=== PATIENT | female | born 1970 | race American Indian/Alaskan Native ===

== ENCOUNTER 2019-08-31 08:10 | Inpatient (IN) | payer OTHER ==
--- NOTE | 2019-08-31 08:26 | Emergency Department Report ---
HPI - General Chief Complaint: Neuro Symptoms/Deficit Time Seen by Provider: 08/31/19 08:25 - HPI HPI: Room 19 ED Past Medical Hx - Past Medical History Previous Medical History?: Yes Hx Hypertension: Yes ED Review of Systems ROS: Stated complaint: RT SIDE WEAKNESS Other details as noted in HPI Critical care attestation.: If time is entered above; I have spent that time in minutes in the direct care of this critically ill patient, excluding procedure time. ED Disposition Condition: Stable
--- NOTE | 2019-08-31 08:53 | Emergency Department Report ---
ED Neuro Deficit HPI - General Chief Complaint: Neuro Symptoms/Deficit Stated Complaint: RT SIDE WEAKNESS Time Seen by Provider: 08/31/19 08:25 Source: patient Mode of arrival: Wheelchair Limitations: No Limitations - History of Present Illness Initial Comments: [facility] Date of Service: 08/31/2019 08:22:27 Impression: Small Vessel Infarct left hemispheric, subcortical-thalamic Comments/Sign-Out: The patient comes in with right sided weakness; seems related more to her sensory loss. No previous stroke and out of therapeutic window for tpa. Will need admission for further stroke workup. Metrics: Last Known Well: 08/30/2019 11:30:00 [facility] Notification Time: 08/31/2019 08:22:27 Arrival Time: 08/31/2019 08:22:27 Stamp Time: 08/31/2019 08:22:27 Time First Login Attempt: 08/31/2019 08:24:00 Video Start Time: 08/31/2019 08:24:00 Symptoms: right sided weakness and numbness NIHSS Start Assessment Time: 08/31/2019 08:29:24 Patient is not a candidate for tPA. Patient was not deemed candidate for tPA thrombolytics because of Last Well Known Above 4.5 Hours. Video End Time: 08/31/2019 08:46:03 CT head showed no acute hemorrhage or acute core infarct. CT head was reviewed and results were: small hypodensity on left BG Clinical Presentation is not Suggestive of Large Vessel Occlusive Disease, Patient is not a Candidate for Thrombectomy ED Physician notified of diagnostic impression and management plan on 08/31/2019 08:46:09 Our recommendations are outlined below. Recommendations: Activate Stroke Protocol Admission/Order Set Stroke/Telemetry Floor Neuro Checks Bedside Swallow Eval DVT Prophylaxis IV Fluids, Normal Saline Head of Bed Below 30 Degrees Euglycemia and Avoid Hyperthermia (PRN Acetaminophen) Initiate Aspirin 325 MG Daily Recommended Scan: MRI Head MRA Head and Neck Without Contrast When Available - Stroke Protocol Echocardiogram - Transthoracic Echocardiogram Lipid Panel to Be Obtained, if Not Done in the Last 30 Days Therapies: Physical Therapy, Occupational Therapy, Speech Therapy Assessment When Applicable Dysphaghia Screen: Swallow Evaluation, Bedside NPO Until Swallow Evaluation Disposition: Follow up with Teleneurology Follow up Sign Out: Discussed with Emergency Department Provider History of Present Illness: Patient is a 48 year old Female. Patient was brought by private transportation with symptoms of right sided weakness and numbness The patient comes to the hospital for right sided weakness. The last time she felt normal was yesterday around [id number]. She describes that she was getting food, tried to get out of the car to help with the parking spot and then fell down. She felt off throughout the whole day after this. He right side of the face was tingling. Tday she woke up at 3am to go to the bathroom and she was unable to walk well to the bathroom and could not get off the toilet. no h/o afib, stroke, does not take any anticoagulants. CT head showed no acute hemorrhage or acute core infarct. CT head was reviewed. Examination: BP(158/104), 1A: Level of Consciousness - Alert; keenly responsive + 0 1B: Ask Month and Age - Both Questions Right + 0 1C: Blink Eyes & Squeeze Hands - Performs Both Tasks + 0 2: Test Horizontal Extraocular Movements - Normal + 0 3: Test Visual Nascimento - No Visual Loss + 0 4: Test Facial Palsy (Use Grimace if Obtunded) - Normal symmetry + 0 5A: Test Left Arm Motor Drift - No Drift for 10 Seconds + 0 5B: Test Right Arm Motor Drift - Drift, but doesn't hit bed + 1 6A: Test Left Leg Motor Drift - No Drift for 5 Seconds + 0 6B: Test Right Leg Motor Drift - Drift, but doesn't hit bed + 1 7: Test Limb Ataxia (FNF/Heel-[place]) - No Ataxia + 0 8: Test Sensation - Mild-Moderate Loss: Less Sharp/More Dull + 1 9: Test Language/Aphasia - Normal; No aphasia + 0 10: Test Dysarthria - Normal + 0 11: Test Extinction/Inattention - No abnormality + 0 NIHSS Score: 3 Patient was informed the Neurology Consult would happen via TeleHealth consult by way of interactive audio and video telecommunications and consented to receiving care in this manner. Due to the immediate potential for life-threatening deterioration due to underlying acute neurologic illness, I spent 35 minutes providing critical care. This time includes time for face to face visit via telemedicine, review of medical records, imaging studies and discussion of findings with providers, the patient and/or family. Dr Irwin Tejeda [facility] Case [id number] - Related Data Allergies/Adverse Reactions: Allergies Allergy/AdvReac Type Severity Reaction Status Date / Time No Known Allergies Allergy Unverified 08/31/19 08:16 ED Review of Systems ROS: Stated complaint: RT SIDE WEAKNESS Other details as noted in HPI ED Past Medical Hx - Past Medical History Previous Medical History?: Yes Hx Hypertension: Yes - Social History Smoking Status: Current Every Day Smoker Substance Use Type: None ED Neuro Physical Exam - General Limitations: No Limitations Suspected Stroke: Yes - Neurological Exam Neurological exam: Present: alert - NIHSS Assessment Interval: Baseline 1a. Level of Consciousness: alert/keenly responsive 1b. LOC Questions: answers both correctly 1c. LOC Commands: performs tasks correctly 2. Best Gaze: normal 3. Visual: no visual loss 4. Facial Palsy: normal symmetrical movement 5b. Motor Arm Right: drift 5a. Motor Arm Left: no drift 6a. Motor Leg Left: no drift 6b. Motor Leg Right: drift 7. Limb Ataxia: absent 8. Sensory: mild/moderate sensory loss 9. Best Language: no aphasia 10. Dysarthria: normal 11. Extinction/Inattention: no abnormality Total Score: 3 Stroke Severity: Minor Stroke ED Course Vital Signs 08/31/19 08:40 Temperature 97.9 F Pulse Rate 73 Respiratory 15 Rate Blood Pressure 158/104 [Left] O2 Sat by Pulse 98 Oximetry - Lab Data Lab Results 08/31/19 Range/Units 08:29 POC Glucose 120 H (70-105) Critical care attestation.: If time is entered above; I have spent that time in minutes in the direct care of this critically ill patient, excluding procedure time. ED Disposition Clinical Impression: Stroke Disposition: DC-09 OP ADMIT IP TO THIS HOSP Is pt being admited?: Yes Condition: Stable
--- NOTE | 2019-08-31 08:54 | Cat Scan Report ---
Examination: CT of the head without contrast Clinical information: Right-sided weakness for 2 days. Comparison: None Technical: Multiple axial CT images of the head were obtained without intravenous contrast. Sagittal and coronal reformats were obtained. All CTs at this facility utilize dose reduction techniques inc luding automated exposure control, iterative reconstruction and weight based dosing when appropriate to reduce patient radiation dose to as low as reasonable achievable. Findings: There is a subtle 4 mm low-density region in the left globus pallidus. Additionally, there is a subtle hyperdense appearance of the right MCA. The ventricular system is normal in size. There is no abnormal extra-axial fluid collection. Evaluation of bony structures demonstrates no evidence of acute bony abnormality. 1. Subtle hyperdense appearance of the right MCA. While this is a nonspecific finding, it could sugg est the presence of thrombus. Please correlate with patient's clinical symptomatology. MRI of the bra in is also recommended for further evaluation, given the very subtle nature of this finding on CT. 2. Single 4 mm low-density region within the left globus pallidus. It is difficult to determine its a cuity due to its small size and lack of prior studies. This study was designated as a code stroke protocol and findings were personally communicated to Dr. Ace at 7:48 AM Central time. Signer Name: Hilda Walker MD Signed: 08/31/2019 8:49 AM Workstation Name: [email or web address]
[2019-08-31 08:55] LABS: Basophils % (Auto) 0.6 % (0.0-1.8); Eosinophils # (Auto) 0.1 K/mm3 (0.0-0.4); Eosinophils % (Auto) 1.5 % (0.0-4.3); Hematocrit 47.4 % (30.3-42.9); Hemoglobin 16.3 gm/dl (10.1-14.3); Lymphocytes # (Auto) 2.6 K/mm3 (1.2-5.4); Lymphocytes % (Auto) 34.3 % (13.4-35.0); Mean Corpuscular HGB Conc 34 % (30-34); Mean Corpuscular Volume 98 fl (79-97); Monocytes # (Auto) 0.4 K/mm3 (0.0-0.8); Monocytes % (Auto) 5.9 % (0.0-7.3); Platelet Count 322 K/mm3 (140-440); Red Blood Count 4.84 M/mm3 (3.65-5.03); Red Cell Distribution Width 13.6 % (13.2-15.2)
[2019-08-31] MEDS ORDERED: ASPIRIN 325 MG TAB PO ONE (09:01)
--- NOTE | 2019-08-31 09:07 | Emergency Department Report ---
HPI - General Chief Complaint: Neuro Symptoms/Deficit Time Seen by Provider: 08/31/19 08:25 - HPI HPI: Room 19 The patient is a 48-year-old female present with a chief complaint of right- sided weakness. Patient states her symptoms began yesterday morning at approximately 11:45 am when she experience right upper extremity weakness and numbness and feeling near syncopal when attempting to stand up out of a car. The patient states she had to sit back down immediately and rest. The patient states by the time she returned to work at 13: 2 0 her symptoms had resolved. The patient states she was doing okay until approximately 17: 00 when she notice d right upper extremity and right foot numbness. At 03: 00 the patient was unable to move her right arm or right leg at all. ED Past Medical Hx - Past Medical History Previous Medical History?: Yes Hx Hypertension: Yes - Surgical History Past Surgical History?: No - Family History Family history: no significant - Social History Smoking Status: Current Every Day Smoker (1 pack/day) Substance Use Type: None, Alcohol (4-5 shots daily), Marijuana - Medications Home Medications: Home Medications Medication Instructions Recorded Confirmed Last Taken Type Metoprolol [Lopressor TAB] 50 mg PO BID 08/31/19 08/31/19 08/28/19 History amLODIPine [Norvasc] 10 mg PO DAILY 08/31/19 08/31/19 08/28/19 History ED Review of Systems ROS: Stated complaint: RT SIDE WEAKNESS Other details as noted in HPI Constitutional: no symptoms reported Eyes: denies: eye pain ENT: denies: throat pain Respiratory: no symptoms reported Cardiovascular: denies: chest pain Endocrine: no symptoms reported Gastrointestinal: denies: abdominal pain Genitourinary: denies: dysuria Musculoskeletal: denies: back pain Neurological: weakness, numbness Physical Exam - Physical Exam Vital Signs: Vital Signs 08/31/19 08:40 Temperature 97.9 F Pulse Rate 73 Respiratory 15 Rate Blood Pressure 158/104 [Left] O2 Sat by Pulse 98 Oximetry Physical Exam: GENERAL: The patient is well-developed well-nourished female lying on stretcher not appear to be in acute distress. [] HEENT: Normocephalic. Atraumatic. Extraocular motions are intact. Patient has moist mucous membranes. NECK: Supple. Trachea midline CHEST/LUNGS: Clear to auscultation. There is no respiratory distress noted. HEART/CARDIOVASCULAR: Regular. There is no tachycardia. There is no gallop rub or murmur. ABDOMEN: Abdomen is soft, nontender. Patient has normal bowel sounds. There is no abdominal distention. SKIN: There is no rash. There is no edema. There is no diaphoresis. NEURO: The patient is awake, alert, and oriented. The patient is cooperative. Cranial nerves II through XII grossly intact except cranial nerve XI on the right. Patient experiences weakness and ataxia of the right upper and lower extremities. The patient has normal speech MUSCULOSKELETAL: There is no evidence of acute injury. ED Course Vital Signs 08/31/19 08:40 Temperature 97.9 F Pulse Rate 73 Respiratory 15 Rate Blood Pressure 158/104 [Left] O2 Sat by Pulse 98 Oximetry ED Medical Decision Making - Lab Data Result diagrams: 08/31/19 08:41 08/31/19 09:07 Laboratory Tests 08/31/19 08/31/19 08/31/19 08:29 08:41 08:41 WBC 7.6 RBC 4.84 Hgb 16.3 H Hct 47.4 H MCV 98 H MCH 34 H MCHC 34 RDW 13.6 Plt Count 322 Lymph % (Auto) 34.3 [place] % (Auto) 5.9 Eos % (Auto) 1.5 Baso % (Auto) 0.6 Lymph # 2.6 [place] # 0.4 Eos # 0.1 Baso # 0.0 Seg Neutrophils % 57.7 Seg Neutrophils # 4.4 PT 12.9 INR 0.96 APTT 29.7 Thrombin Time Sodium Potassium Chloride Carbon Dioxide Anion Gap BUN Creatinine Estimated GFR BUN/Creatinine Ratio Glucose POC Glucose 120 H Calcium Troponin T 08/31/19 08/31/19 08:41 09:07 WBC RBC Hgb Hct MCV MCH MCHC RDW Plt Count Lymph % (Auto) [place] % (Auto) Eos % (Auto) Baso % (Auto) Lymph # [place] # Eos # Baso # Seg Neutrophils % Seg Neutrophils # PT INR APTT Thrombin Time 14.5 L Sodium 136 L Potassium 4.2 Chloride 102.9 Carbon Dioxide 19 L Anion Gap 18 BUN 12 Creatinine 0.7 Estimated GFR > 60 BUN/Creatinine Ratio 17 Glucose 128 H POC Glucose Calcium 9.6 Troponin T < 0.010 - EKG Data -: EKG Interpreted by Nc EKG shows normal: sinus rhythm Rate: normal - EKG Data When compared to previous EKG there are: previous EKG unavailable Interpretation: nonspecific ST-T wave franklin (T wave inversions in leads II, 3, aVF, V5) - Radiology Data Radiology results: report reviewed (CT brain, CTA brain, CTA neck), image reviewed (CT brain, CTA brain, CTA neck) Findings [facility] [address] [id number] Cat Scan Report Signed Patient: ANTON FULTON MR#: Susan [id number] : 1970 Acct:[id number] Age/Sex: 48 / F ADM Date: 08/31/19 Loc: ED Attending Dr: Ordering Physician: UNRULY PEGUERO MD Date of Service: 08/31/19 Procedure(s): CT head/brain wo con Accession Number(s): [id number] cc: UNRULY PEGUERO MD Examination: CT of the head without contrast Clinical information: Right- sided weakness for 2 days. Comparison: None Technical: Multiple axial CT images of the head were obtained without intravenous contrast. Sagittal and coronal reformats were obtained. All CTs at this facility utilize dose reduction techniques including automated exposure control, iterative reconstruction and w eight based dosing when appropriate to reduce patient radiation dose to as low as reasonable achievable. Findings: There is a subtle 4 mm low-density region in the left globus pallidus. Additionally, there is a subtle hyperdense appearance of the right MCA. The ventricular system is normal in size. There is no abnormal extra-axial fluid collection. Evaluation of bony structures demonstrates no evidence of acute bony abnormality. 1. Subtle hyperdense appearance of the right MCA. While this is a nonspecific finding, it could suggest the presence of thrombus. Please correlate with patient's clinical symptomatology. MRI of the brain is also recommended for further evaluation, given the very subtle nature of this finding on CT. 2. Single 4 mm low-density region within the left globus pallidus. It is difficult to determine its acuity due to its small size and lack of prior studies. This study was designated as a code stroke protocol and findings were personally communicated to Dr. Peguero at 7: 48 AM Central time. Signer Name: Hilda Walker MD Signed: 08/31/2019 8:49 AM Workstation Name: [id number] Transcribed By: NOA Dictated By: Hilda Walker MD Electronically Authenticated By: Hilda Walker MD Signed Date/Time: 08/31/19 0849 DD/ 0834 TD/TT: [address] [address] Cat Scan Report Signed Patient: ANTON FULTON MR#: [id number] : 1970 Acct:[id number] Age/Sex: 48 / F ADM Date: 08/31/19 Loc: ED Attending Dr: Ordering Physician: UNRULY PEGUERO MD Date of Service: 08/31/19 Procedure(s): CT angio head Accession Number(s): [id number] cc: UNRULY PEGUERO MD HEAD CT ANGIOGRAM 08/31/2019 HISTORY: Right-sided weakness FINDINGS: Contrast- enhanced CT angiographic images of the intracranial circulation were obtained. In addition to the axial images, sagittal and coronal reformatted images were obtained. In addition, 3 plane MIP reconstructions were produced. Image quality is somewhat limited due to issues with bolus timing. There is no evidence of vessel occlusion. Vascular contours at the level of skull base and [place] demonstrate no evidence of occlusion, stenosis, or malformation. IMPRESSION: No significant abnormality. Image quality is somewhat limited as mentioned above. All CT scans at this location are performed using dose reduction to ALARA by means of automated exposure control. Signer Name: Gilmer Mendez MD Signed: 08/31/2019 11:15 AM Workstation Name: [id number] Transcribed By: [place] Dictated By: Gilmer Mendez MD Electronically Authenticated By: Gilmer Mendez MD Signed Date/Time: 08/31/19 1115 DD/ 1108 TD/TT: [address] [address] Cat Scan Report Signed Patient: ANTON FULTON MR#: [id number] : 1970 Acct:[id number] Age/Sex: 48 / F ADM Date: 08/31/19 Loc: ED Attending Dr: Ordering Physician: UNRULY PEGUERO MD Date of Service: 08/31/19 Procedure(s): CT angio neck Accession Number(s): [id number] cc: UNRULY PEGUERO MD NECK CT ANGIOGRAM 08/31/2019 HISTORY: Right-sided weakness FINDINGS: Contrast- enhanced CT angiographic images of the neck were obtained. In addition to the axial images, sagittal and coronal reformatted images were obtained. In addition, 3 plane MIP reconstructions were produced. NASCET like criteria were used in this evaluation. The right bifurcation is unremarkable. Left bifurcation shows no evidence of focal stenosis. There is caliber change of the internal carotid artery which occurs 1 to 2 cm above its origin at the bifurcation. This is unlikely to be associated with some vascular tortuosity and atherosclerotic narrowing. Common and internal carotid arteries are otherwise unremarkable. Vertebral artery contours are normal. Visualized portions of the aortic arch are unremarkable. Prominent hyperdense venous contrast is present in the region of the left subclavian vein, which obscures local vascular evaluation. This may be due to relative narrowing of the left brachiocephalic vein as it passes over the aorta. This can be due to anatomic variation or venous stenosis. Because of this hypodensity and is associated beam hardening artifact, the left subclavian artery is not visualized. IMPRESSION: No evidence of carotid bifurcation stenosis. See above discussion for details. All CT scans at this location are performed using dose reduction to ALARA by means of automated exposure control. Signer Name: Gilmer Mendez MD Signed: 08/31/2019 11:08 AM Workstation Name: [id number] Transcribed By: AO Dictated By: Gilmer Mendez MD Electronically Authenticated By: Gilmer Mendez MD Signed Date/Time: 08/31/19 1108 DD/ 1101 TD/TT: - Differential Diagnosis CVA, TIA, intracranial hemorrhage Critical care attestation.: If time is entered above; I have spent that time in minutes in the direct care of this critically ill patient, excluding procedure time. ED Disposition Clinical Impression: Stroke Disposition: DC-09 OP ADMIT IP TO THIS HOSP Is pt being admited?: Yes Does the pt Need Aspirin: Yes Condition: Fair Time of Disposition: 11:30 (Hospitalist paged)
[2019-08-31 09:10] LABS: INR 0.96 (0.87-1.13)
[2019-08-31 09:13] LABS: Partial Thromboplastin Time 29.7 Sec. (24.2-36.6)
[2019-08-31 09:30] LABS: BUN/Creatinine Ratio 17; Blood Urea Nitrogen 12 mg/dL (7-17); Calcium 9.6 mg/dL (8.4-10.2); Hemolysis Index 61
--- NOTE | 2019-08-31 11:12 | Cat Scan Report ---
NECK CT ANGIOGRAM 08/31/2019 HISTORY: Right-sided weakness FINDINGS: Contrast-enhanced CT angiographic images of the neck were obtained. In addition to the axia l images, sagittal and coronal reformatted images were obtained. In addition, 3 plane MIP reconstruct ions were produced. NASCET like criteria were used in this evaluation. The right bifurcation is unremarkable. Left bifurcation shows no evidence of focal stenosis. There is caliber change of the internal carotid artery which occurs 1 to 2 cm above its origin at the bifurcation. This is unlikely to be associated with some vascular tortuosity and atherosclerotic narrowing. Common and internal carotid arteries are otherwise unremarkable. Vertebral artery contours are normal. Visualized portions of the aortic arch are unremarkable. Prominent hyperdense venous contrast is present in the region of the left subclavian vein, which obsc ures local vascular evaluation. This may be due to relative narrowing of the left brachiocephalic vei n as it passes over the aorta. This can be due to anatomic variation or venous stenosis. Because of t his hypodensity and is associated beam hardening artifact, the left subclavian artery is not visualiz ed. IMPRESSION: No evidence of carotid bifurcation stenosis. See above discussion for details. All CT scans at this location are performed using dose reduction to ALARA by means of automated expos ure control. Signer Name: Gilmer Mendez MD Signed: 08/31/2019 11:08 AM Workstation Name: [id number]
--- NOTE | 2019-08-31 11:19 | Cat Scan Report ---
HEAD CT ANGIOGRAM 08/31/2019 HISTORY: Right-sided weakness FINDINGS: Contrast-enhanced CT angiographic images of the intracranial circulation were obtained. In addition to the axial images, sagittal and coronal reformatted images were obtained. In addition, 3 p castillo MIP reconstructions were produced. Image quality is somewhat limited due to issues with bolus timing. There is no evidence of vessel occlusion. Vascular contours at the level of skull base and [place] demonstrate no evidence of occlusion, stenosis, or malformation. IMPRESSION: No significant abnormality. Image quality is somewhat limited as mentioned above. All CT scans at this location are performed using dose reduction to ALARA by means of automated expos ure control. Signer Name: Gilmer Mendez MD Signed: 08/31/2019 11:15 AM Workstation Name: [id number]
--- NOTE | 2019-08-31 17:21 | History and Physical Report ---
History of Present Illness Date of examination: 08/31/19 Date of admission: 08/31/19 11:32 History of present illness: The patient is a 48-year-old female present with a chief complaint of right- sided weakness. Patient states her symptoms began yesterday morning at approximately 11:45 am when she experience right upper extremity weakness and numbness and feeling near syncopal when attempting to stand up out of a car. The patient states she had to sit back down immediately and rest. The patient states by the time she returned to work at 13: 2 0 her symptoms had resolved. The patient states she was doing okay until approximately 17: 00 when she noticed right upper extremity and right foot numbness. At 03: 00 the patient was unable to move her right arm or right leg at all. ED Past Medical Hx - Past Medical History Previous Medical History?: Yes Hx Hypertension: Yes - Surgical History Past Surgical History?: No - Family History Family history: no significant - Social History Smoking Status: Current Every Day Smoker (1 pack/day) Substance Use Type: None, Alcohol (4-5 shots daily), Marijuana - Medications Home Medications: Home Medications Medication Instructions Recorded Confirmed Last Taken Type Metoprolol [Lopressor TAB] 50 mg PO BID 08/31/19 08/31/19 08/28/19 History amLODIPine [Norvasc] 10 mg PO DAILY 08/31/19 08/31/19 08/28/19 History ED Review of Systems ROS: Stated complaint: RT SIDE WEAKNESS Other details as noted in HPI Constitutional: no symptoms reported Eyes: denies: eye pain ENT: denies: throat pain Respiratory: no symptoms reported Cardiovascular: denies: chest pain Endocrine: no symptoms reported Gastrointestinal: denies: abdominal pain Genitourinary: denies: dysuria Musculoskeletal: denies: back pain Neurological: weakness, numbness Medications and Allergies Allergies Allergy/AdvReac Type Severity Reaction Status Date / Time No Known Allergies Allergy Unverified 08/31/19 08:16 Home Medications Medication Instructions Recorded Confirmed Last Taken Type Metoprolol [Lopressor TAB] 50 mg PO BID 08/31/19 08/31/19 08/28/19 History amLODIPine [Norvasc] 10 mg PO DAILY 08/31/19 08/31/19 08/28/19 History Exam - Constitutional Vitals: Temp Pulse Resp BP Pulse Ox 97.9 F 83 15 133/90 97 08/31/19 08:40 08/31/19 14:56 08/31/19 14:00 08/31/19 14:00 08/31/19 11:00 Results - Labs CBC & Chem 7: 08/31/19 08:41 08/31/19 09:07 Labs: Laboratory Last Values WBC 7.6 K/mm3 (4.5-11.0) 08/31/19 08:41 RBC 4.84 M/mm3 (3.65-5.03) 08/31/19 08:41 Hgb 16.3 gm/dl (10.1-14.3) H 08/31/19 08:41 Hct 47.4 % (30.3-42.9) H 08/31/19 08:41 MCV 98 fl (79-97) H 08/31/19 08:41 MCH 34 pg (28-32) H 08/31/19 08:41 MCHC 34 % (30-34) 08/31/19 08:41 RDW 13.6 % (13.2-15.2) 08/31/19 08:41 Plt Count 322 K/mm3 (140-440) 08/31/19 08:41 Lymph % (Auto) 34.3 % (13.4-35.0) 08/31/19 08:41 [place] % (Auto) 5.9 % (0.0-7.3) 08/31/19 08:41 Eos % (Auto) 1.5 % (0.0-4.3) 08/31/19 08:41 Baso % (Auto) 0.6 % (0.0-1.8) 08/31/19 08:41 Lymph # 2.6 K/mm3 (1.2-5.4) 08/31/19 08:41 [place] # 0.4 K/mm3 (0.0-0.8) 08/31/19 08:41 Eos # 0.1 K/mm3 (0.0-0.4) 08/31/19 08:41 Baso # 0.0 K/mm3 (0.0-0.1) 08/31/19 08:41 Seg Neutrophils % 57.7 % (40.0-70.0) 08/31/19 08:41 Seg Neutrophils # 4.4 K/mm3 (1.8-7.7) 08/31/19 08:41 PT 12.9 Sec. (12.2-14.9) 08/31/19 08:41 INR 0.96 (0.87-1.13) 08/31/19 08:41 APTT 29.7 Sec. (24.2-36.6) 08/31/19 08:41 Thrombin Time 14.5 Sec. (15.1-19.6) L 08/31/19 08:41 Sodium 136 mmol/L (137-145) L 08/31/19 09:07 Potassium 4.2 mmol/L (3.6-5.0) 08/31/19 09:07 Chloride 102.9 mmol/L (98-107) 08/31/19 09:07 Carbon Dioxide 19 mmol/L (22-30) L 08/31/19 09:07 Anion Gap 18 mmol/L 08/31/19 09:07 BUN 12 mg/dL (7-17) 08/31/19 09:07 Creatinine 0.7 mg/dL (0.7-1.2) 08/31/19 09:07 Estimated GFR > 60 ml/min 08/31/19 09:07 BUN/Creatinine Ratio 17 % 08/31/19 09:07 Glucose 128 mg/dL (65-100) H 08/31/19 09:07 POC Glucose 120 (70-105) H 08/31/19 08:29 Calcium 9.6 mg/dL (8.4-10.2) 08/31/19 09:07 Troponin T < 0.010 ng/mL (0.00-0.029) 08/31/19 09:07 Short CBC 08/31/19 Range/Units 08:41 WBC 7.6 (4.5-11.0) K/mm3 Hgb 16.3 H (10.1-14.3) gm/dl Hct 47.4 H (30.3-42.9) % Plt Count 322 (140-440) K/mm3 BMP 08/31/19 09:07 Sodium 136 L Potassium 4.2 Chloride 102.9 Carbon Dioxide 19 L BUN 12 Creatinine 0.7 Glucose 128 H Calcium 9.6 Cardiac Enzymes 08/31/19 Range/Units 09:07 Troponin T < 0.010 (0.00-0.029) ng/mL Assessment and Plan Advance Directives: Yes (Full code) VTE prophylaxis?: Chemical Plan of care discussed with patient/family: Yes - Patient Problems (1) Acute CVA (cerebrovascular accident) Current Visit: Yes Status: Acute
[2019-08-31] MEDS: ASPIRIN 325 MG TAB PO SCH (18:10)
[2019-08-31] MEDS: amLODIPine 10 MG TAB PO SCH (18:10)
[2019-08-31] MEDS ORDERED: chlordiazePOXIDE 25 MG CAP PO PRN (18:54)
[2019-08-31] MEDS ORDERED: LORazepam 2 MG/ML VIAL IV PRN ×2 (18:54)
[2019-08-31] MEDS: LORazepam 2 MG/ML VIAL IV PRN (19:47)
[2019-08-31] MEDS: PRAVASTATIN 40 MG TAB PO SCH (22:30)
[2019-08-31] MEDS: METOPROLOL TARTRATE 50 MG TAB PO SCH (22:31)
--- NOTE | 2019-09-01 06:04 | Event Note ---
Date: 08/31/19 See H/p in reports Acute CVA
[2019-09-01 06:37] LABS: Chol/HDL Ratio 5.14 %
--- NOTE | 2019-09-01 08:11 | History and Physical Report ---
CHIEF COMPLAINT: Right-sided weakness since yesterday morning. HISTORY OF PRESENT ILLNESS: A 48-year-old female with history of hypertension comes in for right upper extremity weakness since yesterday morning, also slight right lower extremity weakness. The patient was trying to get out of the car and felt weak in her leg, but was able to get back into the car and was able to walk a little after the car journey. The patient continued to have right upper extremity weakness and right facial weakness. No diplopia, no nasal regurgitation of fluids. Right foot numbness resolved. No syncope or seizures. No previous history of strokes. The patient was not given TPA because was out of the window for TPA. PAST MEDICAL HISTORY: Significant for hypertension. PAST SURGICAL HISTORY: None. FAMILY HISTORY: None. SOCIAL HISTORY: Smokes over a pack a day. Alcohol occasionally. Marijuana occasionally. REVIEW OF SYSTEMS: Significant for right upper extremity weakness and also right leg numbness, but no weakness. Otherwise, review of systems negative. No syncope or seizures. PHYSICAL EXAMINATION: GENERAL: A middle-aged female, cooperative during examination. VITAL SIGNS: Blood pressure 145/100, temperature 98.4, pulse 82, respirations 18. HEENT: Unremarkable. Pupils are equal and reactive. NECK: Supple. No lymphadenopathy, no thyromegaly. LUNGS: Clear to auscultation and percussion. Good air entry. CARDIOVASCULAR: S1, S2 heard. No gallop, no murmur, no rub. Apical impulse in the left fifth intercostal space, midclavicular line. ABDOMEN: Soft and benign. No hepatosplenomegaly. No guarding, no rigidity. Hernial orifices are normal. EXTREMITIES: Good pedal pulses. No pedal edema. CENTRAL NERVOUS SYSTEM: Alert and oriented x 4, nonfocal exam. SKIN: Normal. CENTRAL NERVOUS SYSTEM: Right upper extremity weakness present, 3/5 power. Able to lift, but not able to sustain it. Reflexes are normal. The right lower extremity power is 5/5. No sensory deficits. Right facial palsy present. Gait normal. SKIN: Normal. LABORATORY DATA: White count is 7600, H and H is 16.3 and 47.4. Sodium is 136, slightly low. A1c is 5.8. BUN and creatinine is 12 and 0.7. Cholesterol is 257, LDL is 186, HDL is 50, cholesterol HDL ratio is 5.14. IMAGING: Head CT, no acute findings. Subtle, hyperdense appearance of the right MCA. Nonspecific finding. It would suggest the presence of thrombus. ____ MRI recommended. Single 4 mm low density lesion within the left globus pallidus. It is difficult to determine its ____ due to the small size and lack of prior studies. Head CTA, neck CTA no acute findings. No evidence of carotid bifurcation stenosis. ASSESSMENT AND PLAN: 1. Acute cerebrovascular accident with right upper extremity weakness. Stroke protocol initiated. The patient is to get MRI, echocardiogram and carotid duplex scan. CT angiograms were done, so no MRI. The patient initiated on aspirin and Plavix. Neurology consult requested. 2. Hypertension. Continue antihypertensives. 3. Nicotine dependence. Nicoderm patch. The patient counseled about effects of smoking on stroke and coronary artery disease and peripheral artery disease. 4. Hyponatremia, very mild. 5. Deep venous thrombosis prophylaxis, heparin 5000 q. 12. JOB# [id number] JERAD/ESTEFANY CASE
[2019-09-01] MEDS ORDERED: LORazepam 2 MG/ML VIAL IV NR (09:00)
[2019-09-01] MEDS: ASPIRIN 325 MG TAB PO SCH (12:01)
[2019-09-01] MEDS: amLODIPine 10 MG TAB PO SCH (12:01)
[2019-09-01] MEDS: NICOTINE 14 MG/24 HR PATCH TD SCH (12:01)
[2019-09-01] MEDS: METOPROLOL TARTRATE 50 MG TAB PO SCH ×2 (12:01→22:36)
[2019-09-01] MEDS: HEPARIN 5,000 UNIT/1 ML VIAL SUB-Q SCH ×2 (12:03→22:36)
--- NOTE | 2019-09-01 13:34 | Progress Note ---
Assessment and Plan Assessment and plan: Acute CVA -CT scan shows sebtle hyperdense appearance of right MCA. 4 mm low density region within the left globus pallidus. -Carotid Doppler and echo reading pending. -MRI could not be done because patient is claustrophobic despite 2 mg of IV Ativan -Continue statin and aspirin -Neurology consulted -PT OT and speech therapy evaluation Active tobacco user -Patient is on NicoDerm and counseled extensively about cessation of smoking Disposition -Continue patient care, follow PT OT evaluation, neurology consult. History Interval history: Patient was seen and evaluated this morning, patient has right arm weakness. Hospitalist Physical - Physical exam Narrative exam: Not in cardiopulmonary distress. The patient appeared well nourished and normally developed. Vital signs as documented. Head exam is unremarkable. No scleral icterus . Neck is without jugular venous distension, thyromegaly, or carotid bruits. Lungs are clear to auscultation. Cardiac exam reveals regular rate and Rhythm. Abdominal exam reveals normal bowel sounds, nontender, no organomegaly. Extremities are nonedematous and both femoral and pedal pulses are normal. 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 Right upper extremity weakness. - Constitutional Vitals: Temp Pulse Resp BP Pulse Ox 98.6 F 66 18 121/69 100 09/01/19 07:54 09/01/19 12:01 09/01/19 10:00 09/01/19 12:01 09/01/19 09:24 Results - Labs CBC & Chem 7: 08/31/19 08:41 08/31/19 09:07 Labs: Laboratory Last Values WBC 7.6 K/mm3 (4.5-11.0) 08/31/19 08:41 RBC 4.84 M/mm3 (3.65-5.03) 08/31/19 08:41 Hgb 16.3 gm/dl (10.1-14.3) H 08/31/19 08:41 Hct 47.4 % (30.3-42.9) H 08/31/19 08:41 MCV 98 fl (79-97) H 08/31/19 08:41 MCH 34 pg (28-32) H 08/31/19 08:41 MCHC 34 % (30-34) 08/31/19 08:41 RDW 13.6 % (13.2-15.2) 08/31/19 08:41 Plt Count 322 K/mm3 (140-440) 08/31/19 08:41 Lymph % (Auto) 34.3 % (13.4-35.0) 08/31/19 08:41 [place] % (Auto) 5.9 % (0.0-7.3) 08/31/19 08:41 Eos % (Auto) 1.5 % (0.0-4.3) 08/31/19 08:41 Baso % (Auto) 0.6 % (0.0-1.8) 08/31/19 08:41 Lymph # 2.6 K/mm3 (1.2-5.4) 08/31/19 08:41 [place] # 0.4 K/mm3 (0.0-0.8) 08/31/19 08:41 Eos # 0.1 K/mm3 (0.0-0.4) 08/31/19 08:41 Baso # 0.0 K/mm3 (0.0-0.1) 08/31/19 08:41 Seg Neutrophils % 57.7 % (40.0-70.0) 08/31/19 08:41 Seg Neutrophils # 4.4 K/mm3 (1.8-7.7) 08/31/19 08:41 PT 12.9 Sec. (12.2-14.9) 08/31/19 08:41 INR 0.96 (0.87-1.13) 08/31/19 08:41 APTT 29.7 Sec. (24.2-36.6) 08/31/19 08:41 Thrombin Time 14.5 Sec. (15.1-19.6) L 08/31/19 08:41 Sodium 136 mmol/L (137-145) L 08/31/19 09:07 Potassium 4.2 mmol/L (3.6-5.0) 08/31/19 09:07 Chloride 102.9 mmol/L (98-107) 08/31/19 09:07 Carbon Dioxide 19 mmol/L (22-30) L 08/31/19 09:07 Anion Gap 18 mmol/L 08/31/19 09:07 BUN 12 mg/dL (7-17) 08/31/19 09:07 Creatinine 0.7 mg/dL (0.7-1.2) 08/31/19 09:07 Estimated GFR > 60 ml/min 08/31/19 09:07 BUN/Creatinine Ratio 17 % 08/31/19 09:07 Glucose 128 mg/dL (65-100) H 08/31/19 09:07 POC Glucose 120 (70-105) H 08/31/19 08:29 Hemoglobin A1c 5.2 % (4-6) 09/01/19 05:58 Calcium 9.6 mg/dL (8.4-10.2) 08/31/19 09:07 Troponin T < 0.010 ng/mL (0.00-0.029) 08/31/19 09:07 Triglycerides 115 mg/dL (2-149) 09/01/19 05:58 Cholesterol 257 mg/dL (50-199) H 09/01/19 05:58 LDL Cholesterol Direct 186 mg/dL (50-130) H 09/01/19 05:58 HDL Cholesterol 50 mg/dL (40-59) 09/01/19 05:58 Cholesterol/HDL Ratio 5.14 % 09/01/19 05:58 Active Medications - Current Medications Current Medications: Generic Name Dose Route Start Last Admin Trade Name Freq PRN Reason Stop Dose Admin Amlodipine Besylate 10 mg 08/31/19 18:00 09/01/19 12:01 Amlodipine PO 10 mg DAILY JOHAN Administration Aspirin 325 mg 08/31/19 18:00 09/01/19 12:01 Aspirin PO 325 mg QDAY JOHAN Administration Atorvastatin Calcium 40 mg 08/31/19 22:00 08/31/19 22:31 Lipitor PO 40 mg QHS JOHAN Administration Chlordiazepoxide HCl 50 mg 08/31/19 18:54 Librium PO Q1H PRN CIWA-Ar 8-15 Chlordiazepoxide HCl 100 mg 08/31/19 18:54 Librium PO Q1H PRN CIWA-Ar 16-25 Heparin Sodium (Porcine) 5,000 unit 09/01/19 10:00 09/01/19 12:03 Heparin SUB-Q 5,000 unit Q12HR JOHAN Administration Lorazepam 2 mg 08/31/19 18:54 08/31/19 19:47 Ativan IV 2 mg Q1H PRN Administration CIWA-Ar 8-15 Lorazepam 4 mg 08/31/19 18:54 Ativan IV Q1H PRN CIWA-Ar 16-25 Lorazepam 4 mg 08/31/19 18:54 Ativan IV Q15MIN PRN CIWA-Ar >25 Metoprolol Tartrate 50 mg 08/31/19 22:00 09/01/19 12:01 Metoprolol PO 50 mg BID JOHAN Administration Nicotine 14 mg 09/01/19 10:00 09/01/19 12:01 Habitrol TD 14 mg QDAY JOHAN Administration Pravastatin Sodium 40 mg 08/31/19 22:00 08/31/19 22:30 Pravachol PO 40 mg QHS JOHAN Administration Sodium Chloride 10 ml 08/31/19 17:22 Sodium Chloride Flush Syringe 10 Ml IV PRN PRN LINE FLUSH
--- NOTE | 2019-09-01 13:39 | Consultation ---
History of Present Illness Consult date: 09/01/19 Requesting physician: SRINI PUGH Reason for Consult: stroke Chief complaint: R sided weakness History of present illness: 48-year-old female with a history of hypertension who was not on her antihypertensive meds had acute onset of right side weakness and numbness involving the right face arm and leg causing her pre-syncope/ fall on Sunday, she then regained strength , went back to work w signs of full recovery but then that evening R arm <leg numb weakness returned , early Sunday morning woke up with similar symptoms R face arm leg motor sensory loss, arriving to the hospital yesterday w deficits, initial CT head showing L glob pal. hypoden. , and initial CT of the head and neck showing no large vessel occlusion Since admission no atrial fibrillation telemetry normal sinus rhythm MRI brain attempted today patient was not able to tolerate No recurrent stroke since admission no seizures no headache Patient has never had a stroke in her past admits to not taking her medications LDL is elevated No history of diabetes TIERA screening negative Patient still complains of right face arm and leg weakness slurred speech denies any difficulty with swallowing double vision loss of vision loss of consciousness denies any new bowel and bladder dysfunction spine pain radicular pain Denies any chest pain shortness of breath or recent blood loss No recent fevers I reviewed the CT head myself agree with the findings Patient has no complaints of cortical deficits echo report pending now on ASA statin Past History Past Medical History: hypertension Social history: smoking (Family history negative for neurologic disease) Medications and Allergies Allergies Allergy/AdvReac Type Severity Reaction Status Date / Time No Known Allergies Allergy Unverified 08/31/19 08:16 Home Medications Medication Instructions Recorded Confirmed Last Taken Type Metoprolol [Lopressor TAB] 50 mg PO BID 08/31/19 08/31/19 08/28/19 History amLODIPine [Norvasc] 10 mg PO DAILY 08/31/19 08/31/19 08/28/19 History Active Meds: Active Medications Amlodipine Besylate (Amlodipine) 10 mg PO DAILY [facility] Last Admin: 09/01/19 12:01 Dose: 10 mg Documented by: Aspirin (Aspirin) 325 mg PO QDAY [facility] Last Admin: 09/01/19 12:01 Dose: 325 mg Documented by: Atorvastatin Calcium (Lipitor) 40 mg PO QHS [facility] Last Admin: 08/31/19 22:31 Dose: 40 mg Documented by: Chlordiazepoxide HCl (Librium) 50 mg PO Q1H PRN PRN Reason: CIWA-Ar 8-15 Chlordiazepoxide HCl (Librium) 100 mg PO Q1H PRN PRN Reason: CIWA-Ar 16-25 Heparin Sodium (Porcine) (Heparin) 5,000 unit SUB-Q Q12HR [facility] Last Admin: 09/01/19 12:03 Dose: 5,000 unit Documented by: Lorazepam (Ativan) 2 mg IV Q1H PRN PRN Reason: CIWA-Ar 8-15 Last Admin: 08/31/19 19:47 Dose: 2 mg Documented by: Lorazepam (Ativan) 4 mg IV Q1H PRN PRN Reason: CIWA-Ar 16-25 Lorazepam (Ativan) 4 mg IV Q15MIN PRN PRN Reason: CIWA-Ar >25 Metoprolol Tartrate (Metoprolol) 50 mg PO BID [facility] Last Admin: 09/01/19 12:01 Dose: 50 mg Documented by: Nicotine (Habitrol) 14 mg TD QDAY [facility] Last Admin: 09/01/19 12:01 Dose: 14 mg Documented by: Pravastatin Sodium (Pravachol) 40 mg PO QHS [facility] Last Admin: 08/31/19 22:30 Dose: 40 mg Documented by: Sodium Chloride (Sodium Chloride Flush Syringe 10 Ml) 10 ml IV PRN PRN PRN Reason: LINE FLUSH Physical Examination - Vital Signs Vital Signs: Vital Signs Pulse Resp 85 13 08/31/19 08:37 08/31/19 08:37 - Physical Exam Narrative exam: aaox4 no aphasia agnosia + dysarthria R facial droop w R face decrease sensation to LT, otherwise rest of CN are intact 2-12 pupils reactive EOMI no dv VFF R arm and leg weakness 4/5 remaining limbs 5/5 R arm pronator drift R arm leg sensory loss to LT diffuse tongue midline no extra movement skin intact pulses good x 4 no d/c nose ears no cerebellar signs no edema no resp distress Results - Laboratory Findings CBC and BMP: 08/31/19 08:41 08/31/19 09:07 Abnormal Lab Findings: Abnormal Labs 08/31/19 08/31/19 08/31/19 08:29 08:41 08:41 Hgb 16.3 H Hct 47.4 H MCV 98 H MCH 34 H Thrombin Time 14.5 L Sodium Carbon Dioxide Glucose POC Glucose 120 H Cholesterol LDL Cholesterol Direct 08/31/19 09/01/19 09:07 05:58 Hgb Hct MCV MCH Thrombin Time Sodium 136 L Carbon Dioxide 19 L Glucose 128 H POC Glucose Cholesterol 257 H LDL Cholesterol Direct 186 H Assessment and Plan stroke acute isch L MCA small vessel branch occlusion in setting of poorly controlled HTN and HLD, lacunar, unstable elevated LDL BP permissive HTN can be stopped , keep normotensive still has R sided motor sensory weakness tele NO A.FIB ha1c 5.2 LDL 186! 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
--- NOTE | 2019-09-01 14:05 | Vascular Lab Report ---
BILATERAL CAROTID DOPPLER ULTRASOUND INDICATION : stroke TECHNIQUE: Grayscale and color Doppler imaging performed through the neck. COMPARISON: None FINDINGS: Right: There is no significant atherosclerotic disease. Peak systolic velocity in the CCA is 48 cm/ s with end-diastolic velocity of 10 cm/s. Peak systolic velocity in the proximal ICA is 63 cm/s with end-diastolic velocity of 26 cm/s. ICA to CCA ratio is less than 2. There is antegrade flow in the E CA and the vertebral artery. Left: There is no significant atherosclerotic disease. Peak systolic velocity in the CCA is 41 cm/s w ith end-diastolic velocity of 10 cm/s. Peak systolic velocity in the proximal ICA is 97 cm/s with end -diastolic velocity of 29 cm/s. ICA to CCA ratio is 2.37. There is antegrade flow in the ECA and the vertebral artery. IMPRESSION: No hemodynamically significant stenosis by NASCET criteria. Signer Name: Kentrell Cloud Jr, MD Signed: 09/01/2019 2:00 PM Workstation Name: [id number]
[2019-09-01] MEDS: LORazepam 2 MG/ML VIAL IV PRN (16:39)
[2019-09-01] MEDS: PRAVASTATIN 40 MG TAB PO SCH (22:36)
[2019-09-02] MEDS: LORazepam 2 MG/ML VIAL IV PRN ×2 (00:15→09:54)
[2019-09-02] MEDS: chlordiazePOXIDE 25 MG CAP PO PRN (01:29)
[2019-09-02 06:20] LABS: BUN/Creatinine Ratio 18; Blood Urea Nitrogen 11 mg/dL (7-17); Calcium 9.3 mg/dL (8.4-10.2); Hemolysis Index 9
[2019-09-02] MEDS: METOPROLOL TARTRATE 50 MG TAB PO SCH ×2 (09:53→21:15)
[2019-09-02] MEDS: amLODIPine 10 MG TAB PO SCH (09:53)
[2019-09-02] MEDS: NICOTINE 14 MG/24 HR PATCH TD SCH (09:53)
[2019-09-02] MEDS: ASPIRIN 325 MG TAB PO SCH (09:54)
[2019-09-02] MEDS: HEPARIN 5,000 UNIT/1 ML VIAL SUB-Q SCH ×2 (09:54→21:15)
--- NOTE | 2019-09-02 11:02 | Magnetic Resonance Report ---
MRI BRAIN WITHOUT CONTRAST INDICATION / CLINICAL INFORMATION: stroke. Right-sided weakness TECHNIQUE: Multisequence, multiplanar images were obtained. COMPARISON: CT head dated 08/31/2019 FINDINGS: CEREBRAL and CEREBELLAR HEMISPHERES: MRI demonstrates a small to medium area of diffusion restriction in the left posterior gangliocapsular region measuring up to 1.2 x 1.4 x 2.5 cm. This area demonstra ray decreased signal on the ADC map and mild edema on the T2-weighted images. No other areas of diffu chandra restriction are detected. Mild nonspecific T2 signal abnormalities are identified in the white matter consistent with chronic microangiopathy. No acute hemorrhage. No chronic infarct. No extra- axial fluid collection. VENTRICLES: Normal in size and configuration for age. VISUALIZED ORBITS: No significant abnormality. VISUALIZED PARANASAL SINUSES: No significant abnormality. ADDITIONAL FINDINGS: None. IMPRESSION: 1.2 x 1.4 x 2.5 cm area of subacute ischemia is identified in the left posterior basal ganglia region as described. No evidence for hemorrhage, mass or mass effect. Nonspecific chronic white matter changes. Signer Name: Kentrell Cloud Jr, MD Signed: 09/02/2019 10:58 AM Workstation Name: [id number]
--- NOTE | 2019-09-02 13:49 | Progress Note ---
Assessment and Plan Assessment and plan: The patient is a 48-year-old female present with a chief complaint of right- sided weakness. Patient states her symptoms began the day prior to presentation at approximately 11:45 am when she experience right upper extremity weakness and numbness and feeling near syncopal when attempting to stand up out of a car. The patient states she had to sit back down immediately and rest. The patient states by the time she returned to work at 13: 2 0 her symptoms had resolved. The patient states she was doing okay until approximately 17: 00 when she noticed right upper extremity and right foot numbness. At 03: 00 the patient was unable to move her right arm or right leg at all. In the ED she was noted on imaging studies to have had a Stroke Neurology was consulted, MRI ordered for complete work up Acute CVA -CT scan shows sebtle hyperdense appearance of right MCA. 4 mm low density region within the left globus pallidus. -Carotid Doppler and echo reading pending. -MRI confirms infarct -Continue statin and aspirin -Neurology consulted and input noted -PT OT and speech therapy evaluation and recommendation noted Active tobacco user -Patient is on NicoDerm and counseled extensively about cessation of smoking Disposition -Awaiting placement to acute Rehab at facility in network with insurance company History Interval history: Patient seen and examined, no acute distress. No new complaints. Hospitalist Physical - Physical exam Narrative exam: Not in cardiopulmonary distress. The patient appeared well nourished and normally developed. Vital signs as documented. Head exam is unremarkable. Right facial droop No scleral icterus . Neck is without jugular venous distension, thyromegaly, or carotid bruits. Lungs are clear to auscultation. Cardiac exam reveals regular rate and Rhythm. Abdominal exam reveals normal bowel sounds, nontender, no organomegaly. Extremities are nonedematous and both femoral and pedal pulses are normal. 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 Right upper extremity weakness. - Constitutional Vitals: Temp Pulse Resp BP Pulse Ox 98.1 F 78 18 125/97 100 09/02/19 07:12 09/02/19 09:53 09/02/19 07:12 09/02/19 09:53 09/02/19 05:02 Results - Labs CBC & Chem 7: 08/31/19 08:41 09/02/19 04:56 Labs: Laboratory Last Values WBC 7.6 K/mm3 (4.5-11.0) 08/31/19 08:41 RBC 4.84 M/mm3 (3.65-5.03) 08/31/19 08:41 Hgb 16.3 gm/dl (10.1-14.3) H 08/31/19 08:41 Hct 47.4 % (30.3-42.9) H 08/31/19 08:41 MCV 98 fl (79-97) H 08/31/19 08:41 MCH 34 pg (28-32) H 08/31/19 08:41 MCHC 34 % (30-34) 08/31/19 08:41 RDW 13.6 % (13.2-15.2) 08/31/19 08:41 Plt Count 322 K/mm3 (140-440) 08/31/19 08:41 Lymph % (Auto) 34.3 % (13.4-35.0) 08/31/19 08:41 [place] % (Auto) 5.9 % (0.0-7.3) 08/31/19 08:41 Eos % (Auto) 1.5 % (0.0-4.3) 08/31/19 08:41 Baso % (Auto) 0.6 % (0.0-1.8) 08/31/19 08:41 Lymph # 2.6 K/mm3 (1.2-5.4) 08/31/19 08:41 [place] # 0.4 K/mm3 (0.0-0.8) 08/31/19 08:41 Eos # 0.1 K/mm3 (0.0-0.4) 08/31/19 08:41 Baso # 0.0 K/mm3 (0.0-0.1) 08/31/19 08:41 Seg Neutrophils % 57.7 % (40.0-70.0) 08/31/19 08:41 Seg Neutrophils # 4.4 K/mm3 (1.8-7.7) 08/31/19 08:41 PT 12.9 Sec. (12.2-14.9) 08/31/19 08:41 INR 0.96 (0.87-1.13) 08/31/19 08:41 APTT 29.7 Sec. (24.2-36.6) 08/31/19 08:41 Thrombin Time 14.5 Sec. (15.1-19.6) L 08/31/19 08:41 Sodium 139 mmol/L (137-145) 09/02/19 04:56 Potassium 3.7 mmol/L (3.6-5.0) 09/02/19 04:56 Chloride 102.3 mmol/L (98-107) 09/02/19 04:56 Carbon Dioxide 20 mmol/L (22-30) L 09/02/19 04:56 Anion Gap 20 mmol/L 09/02/19 04:56 BUN 11 mg/dL (7-17) 09/02/19 04:56 Creatinine 0.6 mg/dL (0.7-1.2) L 09/02/19 04:56 Estimated GFR > 60 ml/min 09/02/19 04:56 BUN/Creatinine Ratio 18 % 09/02/19 04:56 Glucose 113 mg/dL (65-100) H 09/02/19 04:56 POC Glucose 120 (70-105) H 08/31/19 08:29 Hemoglobin A1c 5.2 % (4-6) 09/01/19 05:58 Calcium 9.3 mg/dL (8.4-10.2) 09/02/19 04:56 Troponin T < 0.010 ng/mL (0.00-0.029) 08/31/19 09:07 Triglycerides 115 mg/dL (2-149) 09/01/19 05:58 Cholesterol 257 mg/dL (50-199) H 09/01/19 05:58 LDL Cholesterol Direct 186 mg/dL (50-130) H 09/01/19 05:58 HDL Cholesterol 50 mg/dL (40-59) 09/01/19 05:58 Cholesterol/HDL Ratio 5.14 % 09/01/19 05:58 Active Medications - Current Medications Current Medications: Generic Name Dose Route Start Last Admin Trade Name Freq PRN Reason Stop Dose Admin Amlodipine Besylate 10 mg 08/31/19 18:00 09/02/19 09:53 Amlodipine PO 10 mg DAILY JOHAN Administration Aspirin 325 mg 08/31/19 18:00 09/02/19 09:54 Aspirin PO 325 mg QDAY JOHAN Administration Atorvastatin Calcium 40 mg 08/31/19 22:00 09/01/19 22:36 Lipitor PO 40 mg QHS JOHAN Administration Chlordiazepoxide HCl 50 mg 08/31/19 18:54 09/02/19 01:29 Librium PO 50 mg Q1H PRN Administration CIWA-Ar 8-15 Chlordiazepoxide HCl 100 mg 08/31/19 18:54 Librium PO Q1H PRN CIWA-Ar 16-25 Heparin Sodium (Porcine) 5,000 unit 09/01/19 10:00 09/02/19 09:54 Heparin SUB-Q 5,000 unit Q12HR JOHAN Administration Lorazepam 2 mg 08/31/19 18:54 09/02/19 09:54 Ativan IV 2 mg Q1H PRN Administration CIWA-Ar 8-15 Lorazepam 4 mg 08/31/19 18:54 Ativan IV Q1H PRN CIWA-Ar 16-25 Lorazepam 4 mg 08/31/19 18:54 Ativan IV Q15MIN PRN CIWA-Ar >25 Metoprolol Tartrate 50 mg 08/31/19 22:00 09/02/19 09:53 Metoprolol PO 50 mg BID JOHAN Administration Nicotine 14 mg 09/01/19 10:00 09/02/19 09:53 Habitrol TD 14 mg QDAY JOHAN Administration Pravastatin Sodium 40 mg 08/31/19 22:00 09/01/19 22:36 Pravachol PO 40 mg QHS JOHAN Administration Sodium Chloride 10 ml 08/31/19 17:22 09/02/19 09:54 Sodium Chloride Flush Syringe 10 Ml IV 10 ml PRN PRN Administration LINE FLUSH
[2019-09-02] MEDS: PRAVASTATIN 40 MG TAB PO SCH (21:16)
--- NOTE | 2019-09-03 12:45 | Progress Note ---
Assessment and Plan stroke acute isch L MCA small vessel branch occlusion lacunar, L BG, poor HTN control , poor med compliance, stable no a.fib no stroke recurrence stable hosp course anti plt statin strict BP control stroke prevention education inpt rehab recomm CTA head neck, no intracranial stenosis carotids neg for stenosis LDL very elevated ECHO : report needs to r/o pfo and source of emboli prior to d/c Subjective Date of service: 09/03/19 Principal diagnosis: stroke Interval history: no recurrent strokes no a.fib no MORAN no n/v no vertigo still c/o R sided numb/weakness face arm leg no new neuro complaints education : smoking, eating, exercise, med compliance carotids : no sig stenosis LDL elevated today labs reviewed CTA h/n: no intracranial stenosis no DM BP better control ECHO report pending Objective - Vital Sign Vital Signs - 12hr 09/03/19 09/03/19 09/03/19 04:16 07:45 12:13 Temperature 98.7 F 98.4 F 98.6 F Pulse Rate 74 73 78 Respiratory 16 18 18 Rate Blood Pressure 146/100 123/92 136/84 O2 Sat by Pulse 100 98 100 Oximetry - Laboratory Findings CBC and BMP: 08/31/19 08:41 09/02/19 04:56 Abnormal Lab Findings: Abnormal Labs 08/31/19 08/31/19 08/31/19 08:29 08:41 08:41 Hgb 16.3 H Hct 47.4 H MCV 98 H MCH 34 H Thrombin Time 14.5 L Sodium Carbon Dioxide Creatinine Glucose POC Glucose 120 H Cholesterol LDL Cholesterol Direct 08/31/19 09/01/19 09/02/19 09:07 05:58 04:56 Hgb Hct MCV MCH Thrombin Time Sodium 136 L Carbon Dioxide 19 L 20 L Creatinine 0.6 L Glucose 128 H 113 H POC Glucose Cholesterol 257 H LDL Cholesterol Direct 186 H
[2019-09-03] MEDS: NICOTINE 14 MG/24 HR PATCH TD SCH (13:39)
[2019-09-03] MEDS: amLODIPine 10 MG TAB PO SCH (13:39)
[2019-09-03] MEDS: chlordiazePOXIDE 25 MG CAP PO PRN (13:39)
[2019-09-03] MEDS: ASPIRIN 325 MG TAB PO SCH (13:40)
[2019-09-03] MEDS: METOPROLOL TARTRATE 50 MG TAB PO SCH ×2 (13:40→22:45)
[2019-09-03] MEDS: HEPARIN 5,000 UNIT/1 ML VIAL SUB-Q SCH ×2 (13:40→22:45)
--- NOTE | 2019-09-03 13:54 | Progress Note ---
Assessment and Plan Assessment and plan: The patient is a 48-year-old female present with a chief complaint of right- sided weakness. Patient states her symptoms began the day prior to presentation at approximately 11:45 am when she experience right upper extremity weakness and numbness and feeling near syncopal when attempting to stand up out of a car. The patient states she had to sit back down immediately and rest. The patient states by the time she returned to work at 13: 2 0 her symptoms had resolved. The patient states she was doing okay until approximately 17: 00 when she noticed right upper extremity and right foot numbness. At 03: 00 the patient was unable to move her right arm or right leg at all. 3/4: Continue physical therapy. Awaiting placement acute rehab echocardiogram preliminary report reviewed as printed in the chart shows no no PFO or emboli. Shows a preserved EF. Continue aspirin and statin. MRI confirms CVA. Discussed with neurologist. Counseling provided to the patient on need to have better control of blood pressure and compliance of medications. 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 Patient is too high risk for fall and will need placement for acute rehab. Plan discussed with the patient. History Interval history: Patient seen and examined, no acute distress. No new complaints. This morning noted to be ambulating with physical therapy right foot drop still present. Leg support noted. Hospitalist Physical - Physical exam Narrative exam: Not in cardiopulmonary distress. The patient appeared well nourished and normally developed. Vital signs as documented. Head exam is unremarkable. Right facial droop No scleral icterus . Neck is without jugular venous distension, thyromegaly, or carotid bruits. Lungs are clear to auscultation. Cardiac exam reveals regular rate and Rhythm. Abdominal exam reveals normal bowel sounds, nontender, no organomegaly. Extremities are nonedematous and both femoral and pedal pulses are normal. 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 Right upper extremity weakness with right foot drop. - Constitutional Vitals: Temp Pulse Resp BP Pulse Ox 98.6 F 68 18 136/84 100 09/03/19 12:13 09/03/19 13:40 09/03/19 12:13 09/03/19 12:13 09/03/19 12:13 Results - Labs CBC & Chem 7: 08/31/19 08:41 09/02/19 04:56 Labs: Laboratory Last Values WBC 7.6 K/mm3 (4.5-11.0) 08/31/19 08:41 RBC 4.84 M/mm3 (3.65-5.03) 08/31/19 08:41 Hgb 16.3 gm/dl (10.1-14.3) H 08/31/19 08:41 Hct 47.4 % (30.3-42.9) H 08/31/19 08:41 MCV 98 fl (79-97) H 08/31/19 08:41 MCH 34 pg (28-32) H 08/31/19 08:41 MCHC 34 % (30-34) 08/31/19 08:41 RDW 13.6 % (13.2-15.2) 08/31/19 08:41 Plt Count 322 K/mm3 (140-440) 08/31/19 08:41 Lymph % (Auto) 34.3 % (13.4-35.0) 08/31/19 08:41 [place] % (Auto) 5.9 % (0.0-7.3) 08/31/19 08:41 Eos % (Auto) 1.5 % (0.0-4.3) 08/31/19 08:41 Baso % (Auto) 0.6 % (0.0-1.8) 08/31/19 08:41 Lymph # 2.6 K/mm3 (1.2-5.4) 08/31/19 08:41 [place] # 0.4 K/mm3 (0.0-0.8) 08/31/19 08:41 Eos # 0.1 K/mm3 (0.0-0.4) 08/31/19 08:41 Baso # 0.0 K/mm3 (0.0-0.1) 08/31/19 08:41 Seg Neutrophils % 57.7 % (40.0-70.0) 08/31/19 08:41 Seg Neutrophils # 4.4 K/mm3 (1.8-7.7) 08/31/19 08:41 PT 12.9 Sec. (12.2-14.9) 08/31/19 08:41 INR 0.96 (0.87-1.13) 08/31/19 08:41 APTT 29.7 Sec. (24.2-36.6) 08/31/19 08:41 Thrombin Time 14.5 Sec. (15.1-19.6) L 08/31/19 08:41 Sodium 139 mmol/L (137-145) 09/02/19 04:56 Potassium 3.7 mmol/L (3.6-5.0) 09/02/19 04:56 Chloride 102.3 mmol/L (98-107) 09/02/19 04:56 Carbon Dioxide 20 mmol/L (22-30) L 09/02/19 04:56 Anion Gap 20 mmol/L 09/02/19 04:56 BUN 11 mg/dL (7-17) 09/02/19 04:56 Creatinine 0.6 mg/dL (0.7-1.2) L 09/02/19 04:56 Estimated GFR > 60 ml/min 09/02/19 04:56 BUN/Creatinine Ratio 18 % 09/02/19 04:56 Glucose 113 mg/dL (65-100) H 09/02/19 04:56 POC Glucose 104 (70-105) 09/03/19 07:58 Hemoglobin A1c 5.2 % (4-6) 09/01/19 05:58 Calcium 9.3 mg/dL (8.4-10.2) 09/02/19 04:56 Troponin T < 0.010 ng/mL (0.00-0.029) 08/31/19 09:07 Triglycerides 115 mg/dL (2-149) 09/01/19 05:58 Cholesterol 257 mg/dL (50-199) H 09/01/19 05:58 LDL Cholesterol Direct 186 mg/dL (50-130) H 09/01/19 05:58 HDL Cholesterol 50 mg/dL (40-59) 09/01/19 05:58 Cholesterol/HDL Ratio 5.14 % 09/01/19 05:58 Active Medications - Current Medications Current Medications: Generic Name Dose Route Start Last Admin Trade Name Freq PRN Reason Stop Dose Admin Amlodipine Besylate 10 mg 08/31/19 18:00 09/03/19 13:39 Amlodipine PO 10 mg DAILY JOHAN Administration Aspirin 325 mg 08/31/19 18:00 09/03/19 13:40 Aspirin PO 325 mg QDAY JOHAN Administration Atorvastatin Calcium 40 mg 08/31/19 22:00 09/02/19 21:16 Lipitor PO 40 mg QHS JOHAN Administration Chlordiazepoxide HCl 50 mg 08/31/19 18:54 09/03/19 13:39 Librium PO 50 mg Q1H PRN Administration CIWA-Ar 8-15 Chlordiazepoxide HCl 100 mg 08/31/19 18:54 Librium PO Q1H PRN CIWA-Ar 16-25 Heparin Sodium (Porcine) 5,000 unit 09/01/19 10:00 09/03/19 13:40 Heparin SUB-Q 5,000 unit Q12HR JOHAN Administration Lorazepam 2 mg 08/31/19 18:54 09/02/19 09:54 Ativan IV 2 mg Q1H PRN Administration CIWA-Ar 8-15 Lorazepam 4 mg 08/31/19 18:54 Ativan IV Q1H PRN CIWA-Ar 16-25 Lorazepam 4 mg 08/31/19 18:54 Ativan IV Q15MIN PRN CIWA-Ar >25 Metoprolol Tartrate 50 mg 08/31/19 22:00 09/03/19 13:40 Metoprolol PO 50 mg BID JOHAN Administration Nicotine 14 mg 09/01/19 10:00 09/03/19 13:39 Habitrol TD 14 mg QDAY JOHAN Administration Pravastatin Sodium 40 mg 08/31/19 22:00 09/02/19 21:16 Pravachol PO 40 mg QHS JOHAN Administration Sodium Chloride 10 ml 08/31/19 17:22 09/02/19 09:54 Sodium Chloride Flush Syringe 10 Ml IV 10 ml PRN PRN Administration LINE FLUSH
[2019-09-03] MEDS: PRAVASTATIN 40 MG TAB PO SCH (22:45)
--- NOTE | 2019-09-04 13:24 | Discharge Summary ---
Providers - Providers Date of Admission: 08/31/19 11:32 Attending physician: KRISS YUN MD 08/31/19 17:22 Occupational Therapy Evaluate and Treat [CONS] Routine Comment: Reason For Exam: Neuro deficits Physical Therapy Evaluation and Treat [CONS] Routine Comment: Reason For Exam: Neuro deficits 08/31/19 17:27 Consult to Physician [CONS] Routine Comment: Consulting Provider: ABHISHEK MADSEN Physician Instructions: Reason For Exam: cva Primary care physician: HERITAGE CONSULTANT Hospitalization Condition: Fair Hospital course: The patient is a 48-year-old female present with a chief complaint of right- sided weakness. Patient states her symptoms began the day prior to presentation at approximately 11:45 am when she experience right upper extremity weakness and numbness and feeling near syncopal when attempting to stand up out of a car. The patient states she had to sit back down immediately and rest. The patient states by the time she returned to work at 13: 2 0 her symptoms had resolved. The patient states she was doing okay until approximately 17: 00 when she noticed right upper extremity and right foot numbness. At 03: 00 the patient was unable to move her right arm or right leg at all. 3/4: Continue physical therapy. Awaiting placement acute rehab echocardiogram preliminary report reviewed as printed in the chart shows no no PFO or emboli. Shows a preserved EF. Continue aspirin and statin. MRI confirms CVA. Discussed with neurologist. Counseling provided to the patient on need to have better control of blood pressure and compliance of medications. 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 Patient is too high risk for fall and will need placement for acute rehab. Plan discussed with the patient. Disposition: [id number] CERT Exam - Constitutional Vitals: Temp Pulse Resp BP Pulse Ox 98.5 F 73 17 115/81 96 09/04/19 10:56 09/04/19 10:56 09/04/19 10:56 09/04/19 10:56 09/04/19 10:56 Plan Diet: low fat Special Instructions: record daily BP diary Follow up with: PRIMARY CAREMD [Primary Care Provider] - 3-5 Days STAPPENBECK,LUCINDA A, MD [Staff Physician] - 7 Days Prescriptions: AtorvaSTATin [Lipitor] 40 mg PO QHS #30 tablet Aspirin 325 mg PO QDAY #30 tablet
[2019-09-04] MEDS: ASPIRIN 325 MG TAB PO SCH (14:44)
[2019-09-04] MEDS: NICOTINE 14 MG/24 HR PATCH TD SCH (14:44)
[2019-09-04] MEDS: HEPARIN 5,000 UNIT/1 ML VIAL SUB-Q SCH (14:45)
[2019-09-04] MEDS: amLODIPine 10 MG TAB PO SCH (14:50)
[2019-09-04] MEDS: METOPROLOL TARTRATE 50 MG TAB PO SCH (14:51)
[2019-09-04 14:57] VITALS: BP 110/84
== END 2019-09-04 16:00 | DRG 65 ==
LOC: ED 08:10 → 4A 11:32
PROVIDERS: ADMIT Internal Medicine; ATTEND Internal Medicine
DX: I63.512 Cerebral infarction due to unspecified occlusion or stenosis of left middle cerebral artery (principal); G81.91 Hemiplegia, unspecified affecting right dominant side; E87.1 Hypo-osmolality and hyponatremia; I10 Essential (primary) hypertension; F12.90 Cannabis use, unspecified, uncomplicated; F17.200 Nicotine dependence, unspecified, uncomplicated; R29.703 NIHSS score 3; E78.5 Hyperlipidemia, unspecified; Z79.899 Other long term (current) drug therapy; Z72.89 Other problems related to lifestyle
CPT/HCPCS: 36415; 70450; 70496; 70498; 70551; 80048; 80061; 82962; 83036; 84484; 85025; 85610; 85670; 85730; 93005; 93010; 93306; 93880; 99406; G0378; A9270-GY; J1644; J2060; Q9967